=== PATIENT | male | born 1980 | race Two or more races ===

== ENCOUNTER → 2016-11-03 | Outpatient (CLI) | payer OTHER ==
--- NOTE | 2016-11-03 11:10 | KCIC ---
Chest, two views Indication: Positive TB skin test. Time of exam 11:00 a.m. No prior studies are available for comparison. The heart size is normal. The lungs are clear. No infiltrates are seen. The pulmonary vascularity is normal. No effusion or pneumothorax is detected. Impression: No acute cardiopulmonary process is detected. No findings to suggest TB are identified. Electronically signed by: Ihsan Brewer MD (Nov 03, 2016 11:10:12)
== END | disposition home or self-care (01) ==
LOC: KCIC 10:40
PROVIDERS: ATTEND Family Medicine
DX: R76.11 Nonspecific reaction to tuberculin skin test without active tuberculosis (principal)
CPT/HCPCS: 71010